=== PATIENT | female | born 1995 | race Caucasian/White ===

== ENCOUNTER 2021-11-26 16:20 | Outpatient (CLI) | payer OTHER ==
--- NOTE | 2021-11-27 11:07 | XRAY Report ---
PROCEDURE: Cervical Spine w/Flex/Ext INDICATIONS: Neck pain TECHNIQUE: 7 views of the cervical spine were acquired. COMPARISON: None. FINDINGS: Normal cervical spine vertebral body height and alignment. No significant change in alignment upon fl exion or extension. No neural foraminal stenosis on oblique views. Intervertebral disc spaces are con gruent and maintained. No significant degenerative changes of the endplates or posterior elements. Th ere is no fracture identified. Prevertebral soft tissue thickness is normal. IMPRESSION: Normal cervical spine radiographs. Reviewed by: Josafat Beltran MD on 11/27/2021 11:06 AM PDT Approved by: Josafat Beltran MD on 11/27/2021 11:06 AM PDT Station ID: [id number]
--- NOTE | 2021-11-27 11:19 | XRAY Report ---
PROCEDURE: Lumbar Spine w/Flex/Ext INDICATIONS: Low back pain TECHNIQUE: AP & Lateral views of the lumbar spine were acquired, followed by flexion & extension roseanna ding views of the lumbar spine. COMPARISON: None. FINDINGS: Normal lumbar vertebral body height and alignment. No fracture, dislocation, or subluxation. No signi ficant degenerative changes identified. No suspicious lytic or blastic osseous lesion. Regional soft tissues are normal. IMPRESSION: Normal lumbar spine radiographs. Reviewed by: Josafat Beltran MD on 11/27/2021 11:18 AM PDT Approved by: Josafat Beltran MD on 11/27/2021 11:18 AM PDT Station ID: [id number]
== END 2021-11-26 16:21 | disposition home or self-care (01) ==
LOC: DI.N 16:20
DX: S13.4XXA Sprain of ligaments of cervical spine, initial encounter (principal); S23.3XXA Sprain of ligaments of thoracic spine, initial encounter; S33.5XXA Sprain of ligaments of lumbar spine, initial encounter; G44.1 Vascular headache, not elsewhere classified